=== PATIENT | female | born 1985 | race Caucasian/White ===

== ENCOUNTER 2020-01-15 16:45 | Inpatient (IN) | payer MEDICAID, OTHER ==
[~2020-01-15] VITALS: Ht 162.6 cm; Wt 75.5 kg
[2020-01-15 17:44] LABS: Urine Bacteria FEW /hpf (None Seen); Urine Blood 1+ /uL (Negative); Urine Mucus FEW (None Seen); Urine Specific Gravity 1.019 (1.001-1.035); Urine WBC 54 /hpf (0 - 5)
[2020-01-15 17:47] LABS: Basophils # (auto) 0 10 ^3/uL (0-0.2); Basophils % (auto) 0.1 % (0.0-2.0); Eosinophils # (auto) 0 10 ^3/uL (0-0.8); Eosinophils % (auto) 0.1 % (0.0-7.0); Hematocrit 37.7 % (36.0-46.0); Hemoglobin 12.6 g/dL (12.2-16.2); Lymphocytes # (auto) 0.8 10 ^3/uL (0.4-5.4); Lymphocytes % (auto) 7.7 % (10.0-50.0); Mean Corpuscular Hgb Conc. 33.4 g/dL (32.0-36.0); Mean Corpuscular Volume 92.6 fL (80.0-100.0); Monocytes # (auto) 1.2 10 ^3/uL (0-1.3); Monocytes % (auto) 11.5 % (0.0-12.0); Neutrophils # (auto) 8.2 10 ^3/uL (1.6-8.6); Neutrophils % (auto) 80.6 % (37.0-80.0); Platelet Count (auto) 281 10^3/uL (140-450); Red Blood Cells 4.07 10^6/uL (4.0-5.20); Red Cell Distribution Width 13.8 % (11.8-14.3); White Blood Cell 10.2 10^3/uL (4.4-10.8)
[2020-01-15 18:04] LABS: Albumin 3.8 g/dL (3.4-5.0); Calcium 8.6 mg/dL (8.5-10.1); Potassium 3.7 mmol/L (3.5-5.1)
[2020-01-15 18:08] LABS: BUN/Creatinine Ratio 10.6; Bilirubin, Total 0.6 mg/dL (0.2-1.0); Total Protein 7.4 g/dL (6.4-8.2)
[2020-01-15] MEDS ORDERED: SODIUM CHLORIDE 0.9% 2,000 ML IV ONE (18:30)
[2020-01-15] MEDS ORDERED: ONDANSETRON HCL 4 MG/2 ML VIAL IV ONE (19:15)
[2020-01-15] MEDS ORDERED: MORPHINE SULFATE 4 MG/ML SYR/VIAL IV ONE (19:15)
[2020-01-15] MEDS ORDERED: SODIUM CHLORIDE 0.9% 1,000 ML IV ONE (19:15)
[2020-01-15] MEDS ORDERED: cefTRIAXone 1GM/50ML D5W 50 ML IV ONE (19:15)
[2020-01-15 20:58] LABS: Alcohol, Urine < 3.0 mg/dL (0-10); Amphetamine Screen, Urine NEGATIVE (NEGATIVE); Barbiturate Scree,Urine NEGATIVE (NEGATIVE); Benzodiazephine Screen, Urine NEGATIVE (NEGATIVE); Cannabinoid Screen, Urine NEGATIVE (NEGATIVE); Cocaine Screen, Urine NEGATIVE (NEGATIVE); Opiate Scree,Urine POSITIVE (NEGATIVE); Phencyclidine Screen, Urine NEGATIVE (NEGATIVE)
[2020-01-15] MEDS ORDERED: D5W/SOD CHL 0.45% 1,000 ML IV ONE (21:15)
[2020-01-15] MEDS ORDERED: VANCOMYCIN 1GM/250ML 250 ML IV ONE (21:15)
[2020-01-15] MEDS: SODIUM CHLORIDE 0.9% 1,000 ML IV SCH (21:24)
[2020-01-15] MEDS ORDERED: ACETAMINOPHEN 325 MG TAB PO PRN (21:30)
[2020-01-15] MEDS ORDERED: LORazepam 0.5 MG TAB PO PRN (21:30)
[2020-01-15] MEDS ORDERED: metroNIDAZOLE 500MG/100ML 100 ML IV SCH (22:00)
[2020-01-15 22:55] VITALS: BP 106/59
--- NOTE | 2020-01-15 22:55 | NUR ---
Telemetry admit from [facility] admitted to Telemetry unit after SBAR received. Patient oriented to COCO GARG RN primary RN, unit, room, bed, and unit policies regarding patient care and visiting hours. Patient now on continuous telemetry monitoring, tele box # 61 and telemetry reading on arrival to unit is SR. Patient weighed by bedscale and encouraged to call if they need something. All questions and concerns addressed, patient verbalized understanding and in agreement. Fall and safety precautions in place. Call light within reach. Will continue to monitor q1h and prn. Addendum: 01/16/20 at 0408 by COCO GARG RN RN OMIT: "AFTER SBAR RECEIVED"
--- NOTE | 2020-01-15 22:56 | NUR ---
er called communications equipment installer called to inquire on status of media senior recruiter (see emar). RN not available. Awaiting call back. Will continue to monitor.
--- NOTE | 2020-01-15 23:00 | NUR ---
med not given - interface developer called received call back from rn at this time. asked interface developer if medications were given, she stated she did not see them and therefore did not administer. will call after-hours pharm to request time changed since medications given at this time would be late. will continue to monitor.
--- NOTE | 2020-01-15 23:15 | NUR ---
meds rescheduled spoke to after-hours pharmacy [facility]. reported that patient did not receive meds that are past due in er. pharmacist verbalized understanding and will reschedule medications (see emar). will carry out. will continue to monitor.
[2020-01-15] MEDS: metroNIDAZOLE 500MG/100ML 100 ML IV SCH (23:42)
[2020-01-15] MEDS: ONDANSETRON HCL 4 MG/2 ML VIAL IV PRN (23:42)
[2020-01-15] MEDS: MORPHINE SULF INJ 2 MG/ML SYRINGE 1ML IV PRN (23:43)
[2020-01-16] MEDS ORDERED: LEVO150T10 PO (00:47)
[2020-01-16] MEDS ORDERED: VANCOMYCIN 1GM/250ML 250 ML IV ONE (01:00)
[2020-01-16] MEDS: ONDANSETRON HCL 4 MG/2 ML VIAL IV PRN ×4 (05:22→20:28)
[2020-01-16] MEDS: metroNIDAZOLE 500MG/100ML 100 ML IV SCH ×3 (05:22→21:31)
[2020-01-16] MEDS: SODIUM CHLORIDE 0.9% 1,000 ML IV SCH (05:22)
[2020-01-16] MEDS: MORPHINE SULF INJ 2 MG/ML SYRINGE 1ML IV PRN ×4 (05:23→20:29)
[2020-01-16 05:45] VITALS: BP 106/58
[2020-01-16 06:14] LABS: Basophils # (auto) 0 10 ^3/uL (0-0.2); Basophils % (auto) 0.2 % (0.0-2.0); Eosinophils # (auto) 0 10 ^3/uL (0-0.8); Eosinophils % (auto) 0.4 % (0.0-7.0); Hematocrit 33.2 % (36.0-46.0); Hemoglobin 11.1 g/dL (12.2-16.2); Lymphocytes # (auto) 1.3 10 ^3/uL (0.4-5.4); Lymphocytes % (auto) 16.7 % (10.0-50.0); Mean Corpuscular Hemoglobin 31.2 pg (28.0-32.0); Mean Corpuscular Hgb Conc. 33.3 g/dL (32.0-36.0); Mean Corpuscular Volume 93.5 fL (80.0-100.0); Monocytes % (auto) 12.6 % (0.0-12.0); Neutrophils # (auto) 5.6 10 ^3/uL (1.6-8.6); Neutrophils % (auto) 70.1 % (37.0-80.0); Platelet Count (auto) 248 10^3/uL (140-450); Red Blood Cells 3.55 10^6/uL (4.0-5.20); Red Cell Distribution Width 13.8 % (11.8-14.3); White Blood Cell 7.9 10^3/uL (4.4-10.8)
[2020-01-16] MEDS: DOCUSATE SOD 100 MG CAP PO PRN (06:16)
[2020-01-16] MEDS: LEVOTHYROXINE SODIUM 25 MCG TAB PO SCH (06:16)
[2020-01-16 06:32] LABS: Calcium 7.5 mg/dL (8.5-10.1); Potassium 3.6 mmol/L (3.5-5.1)
[2020-01-16 09:00] VITALS: BP 99/57
[2020-01-16] MEDS: cefTRIAXone 1GM/50ML D5W 50 ML IV SCH (09:54)
[2020-01-16 12:13] LABS: INR 1.06 (0.9-1.15); Partial Thromboplastin Time 28.7 sec (23.0-31.2)
[2020-01-16 13:00] VITALS: BP 98/61
[2020-01-16 17:00] VITALS: BP 105/59
--- NOTE | 2020-01-16 19:40 | NUR ---
Opening Shift Note Assumed care of patient, awake and alert. No S/S of distress/SOB or pain. Fall and safety precautions in place. Call light within reach and able to use. Instructed on POC and to call for assist PRN, patient verbalized understanding and in agreement. Will continue to monitor for changes Q1hr and PRN.
[2020-01-16 22:00] VITALS: BP 106/61
[2020-01-17] MEDS: ONDANSETRON HCL 4 MG/2 ML VIAL IV PRN ×4 (01:48→21:03)
[2020-01-17] MEDS: MORPHINE SULF INJ 2 MG/ML SYRINGE 1ML IV PRN ×4 (01:49→21:03)
[2020-01-17 05:00] VITALS: BP 99/53
[2020-01-17] MEDS: LEVOTHYROXINE SODIUM 25 MCG TAB PO SCH (06:00)
[2020-01-17] MEDS: metroNIDAZOLE 500MG/100ML 100 ML IV SCH ×3 (06:00→22:29)
[2020-01-17] MEDS: SODIUM CHLORIDE 0.9% 1,000 ML IV SCH ×2 (06:00→23:24)
[2020-01-17] MEDS: DOCUSATE SOD 100 MG CAP PO PRN (06:18)
[2020-01-17 06:41] LABS: Basophils # (auto) 0 10 ^3/uL (0-0.2); Basophils % (auto) 0.4 % (0.0-2.0); Eosinophils # (auto) 0.1 10 ^3/uL (0-0.8); Eosinophils % (auto) 1.5 % (0.0-7.0); Hematocrit 30.9 % (36.0-46.0); Hemoglobin 10.2 g/dL (12.2-16.2); Lymphocytes # (auto) 1.3 10 ^3/uL (0.4-5.4); Mean Corpuscular Hemoglobin 30.7 pg (28.0-32.0); Mean Corpuscular Hgb Conc. 32.9 g/dL (32.0-36.0); Mean Corpuscular Volume 93.2 fL (80.0-100.0); Monocytes # (auto) 0.8 10 ^3/uL (0-1.3); Monocytes % (auto) 11.8 % (0.0-12.0); Neutrophils # (auto) 4.2 10 ^3/uL (1.6-8.6); Neutrophils % (auto) 65.3 % (37.0-80.0); Platelet Count (auto) 238 10^3/uL (140-450); Red Blood Cells 3.32 10^6/uL (4.0-5.20); Red Cell Distribution Width 13.6 % (11.8-14.3); White Blood Cell 6.4 10^3/uL (4.4-10.8)
[2020-01-17 07:23] LABS: Potassium 3.7 mmol/L (3.5-5.1)
[2020-01-17 07:32] LABS: Albumin 2.9 g/dL (3.4-5.0); BUN/Creatinine Ratio 14.5; Bilirubin, Total 0.4 mg/dL (0.2-1.0); Calcium 7.8 mg/dL (8.5-10.1); Total Protein 5.9 g/dL (6.4-8.2)
[2020-01-17 09:43] VITALS: BP 106/59
[2020-01-17] MEDS: cefTRIAXone 1GM/50ML D5W 50 ML IV SCH (10:50)
[2020-01-17] MEDS: HYDROcodone-ACET 5/325MG TAB PO PRN ×2 (11:01→18:16)
[2020-01-17 13:00] VITALS: BP 105/80
[2020-01-17 22:19] VITALS: BP 105/69
[2020-01-18] MEDS: MORPHINE SULF INJ 2 MG/ML SYRINGE 1ML IV PRN ×4 (02:54→21:22)
[2020-01-18] MEDS: ONDANSETRON HCL 4 MG/2 ML VIAL IV PRN ×4 (02:54→21:22)
[2020-01-18 05:00] VITALS: BP 99/61
[2020-01-18 05:50] LABS: Albumin 2.8 g/dL (3.4-5.0); Bilirubin, Direct 0.1 mg/dL (0-0.2); Bilirubin, Total 0.3 mg/dL (0.2-1.0); Total Protein 5.6 g/dL (6.4-8.2)
[2020-01-18] MEDS: metroNIDAZOLE 500MG/100ML 100 ML IV SCH ×3 (06:23→22:36)
[2020-01-18] MEDS: LEVOTHYROXINE SODIUM 25 MCG TAB PO SCH (06:24)
--- NOTE | 2020-01-18 08:00 | NUR ---
Received pt resting in bed, call light with in reach, pt reports abdominal pain 12/17, pt requested pain medication, will medicate pt as order, will continue to monitor pt.
[2020-01-18] MEDS: cefTRIAXone 1GM/50ML D5W 50 ML IV SCH (08:14)
[2020-01-18 09:00] VITALS: BP 113/65
--- NOTE | 2020-01-18 09:15 | NUR ---
Pt taken to pre op.
[2020-01-18] MEDS ORDERED: ceFAZolin 1GM/50ML 50 ML IV ONE (10:25)
[2020-01-18] MEDS ORDERED: fentaNYL CITRATE 100 MCG/2 ML VL ONE (10:32)
[2020-01-18] MEDS ORDERED: DexAMETHasone SOD PHOS 10MG/1ML VIAL INJ IV ONE (10:32)
[2020-01-18] MEDS ORDERED: ROCURONIUM 10MG/ML 10ML VIAL IV ONE (10:32)
[2020-01-18] MEDS ORDERED: MIDAZOLAM HCL 1MG/1ML-2 ML VIAL ONE (10:33)
[2020-01-18] MEDS ORDERED: PROPOFOL 10 MG/ML 20 ML IV ONE (11:13)
[2020-01-18] MEDS ORDERED: hydrALAZINE HCL 20 MG/ML VL IV PRN (11:30)
[2020-01-18] MEDS ORDERED: ONDANSETRON HCL 4 MG/2 ML VIAL IV PRN (11:30)
[2020-01-18] MEDS ORDERED: ePHEDrine SULFATE 50 MG/ML AMP IV PRN (11:30)
[2020-01-18] MEDS: HYDROmorphone HCL 2 MG/ML VL IV PRN ×4 (11:45→12:25)
--- NOTE | 2020-01-18 12:17 | NUR ---
Nutrition Assessment Note please see attached link for complete assessment Est energy needs BW 70 [id number] kcal (23-25 kcal/kg BW) Est protein needs: 70-77g (1.0-1.1g/kg BW) will reassess prn Addendum: 01/18/20 at [address] Amended: Links added.
--- NOTE | 2020-01-18 12:50 | NUR ---
Received from recovery s/p lap val, abdominal binder on, kiran to rt abdomen, draining serosanguineous fluid, v/s BP 104/58, O2 98% at 2 lit n/c, HR 56, will continue to monitor pt.
[2020-01-18 13:00] VITALS: BP 101/57
[2020-01-18] MEDS: SODIUM CHLORIDE 0.9% 1,000 ML IV SCH (16:36)
[2020-01-18 17:00] VITALS: BP 97/65
--- NOTE | 2020-01-18 17:22 | NUR ---
ss consult Per consult advanced directive. Patient has been provided with advanced directive information. Addendum: 01/18/20 at 1723 by Padmini RUIZ Amended: Links added.
[2020-01-18] MEDS: HYDROcodone-ACET 5/325MG TAB PO PRN (17:46)
--- NOTE | 2020-01-18 19:50 | NUR ---
Opening Shift Note Assumed care of patient, awake and alert. No S/S of distress/SOB. Pt complaining of abdominal pain at this time, will be addressed with prescribed pain medication. Safety measures in place, bed in lowest position, bed rails raised x2, call light within reach. RAYRAY drain noted to be draining well, serosanguineous fluid noted in drain. Abdominal binder in place over incisional areas. Instructed on POC and to call for assist PRN, will continue to monitor for changes Q1hr and PRN.
--- NOTE | 2020-01-18 20:00 | NUR ---
Incentive Spirometer IS measuring at 1000 at this time. Pt educated on the importance of use. Pt verbalized understanding and will continue to use.
[2020-01-18 22:00] VITALS: BP 97/56
[2020-01-19] MEDS: HYDROcodone-ACET 5/325MG TAB PO PRN ×3 (00:16→10:33)
[2020-01-19] MEDS: MORPHINE SULF INJ 2 MG/ML SYRINGE 1ML IV PRN ×2 (04:32→14:09)
[2020-01-19] MEDS: ONDANSETRON HCL 4 MG/2 ML VIAL IV PRN ×2 (04:33→14:09)
[2020-01-19 05:40] LABS: Basophils # (auto) 0 10 ^3/uL (0-0.2); Basophils % (auto) 0.3 % (0.0-2.0); Eosinophils # (auto) 0 10 ^3/uL (0-0.8); Eosinophils % (auto) 0.4 % (0.0-7.0); Hematocrit 29.8 % (36.0-46.0); Lymphocytes % (auto) 17.9 % (10.0-50.0); Mean Corpuscular Hemoglobin 31.1 pg (28.0-32.0); Mean Corpuscular Hgb Conc. 33.6 g/dL (32.0-36.0); Mean Corpuscular Volume 92.5 fL (80.0-100.0); Monocytes # (auto) 0.5 10 ^3/uL (0-1.3); Monocytes % (auto) 9.4 % (0.0-12.0); Neutrophils # (auto) 4.1 10 ^3/uL (1.6-8.6); Nucleated Red Blood Cells % 0.1 %; Platelet Count (auto) 311 10^3/uL (140-450); Red Blood Cells 3.22 10^6/uL (4.0-5.20); Red Cell Distribution Width 13.7 % (11.8-14.3); White Blood Cell 5.7 10^3/uL (4.4-10.8)
[2020-01-19 06:04] VITALS: BP 103/61
[2020-01-19] MEDS: metroNIDAZOLE 500MG/100ML 100 ML IV SCH ×2 (06:15→13:08)
[2020-01-19] MEDS: LEVOTHYROXINE SODIUM 25 MCG TAB PO SCH (06:30)
--- NOTE | 2020-01-19 07:42 | NUR ---
Received pt resting in bed, call light within reach, pt reports tolerating her clear liquid diet, pt educated on the importance, frequency, and use of the incentive spirometer, pt able to reach 1000 ml, abdominal binder on, RAYRAY drain with serosanguineous fluid, pt reports passing gas, abdominal dressings with betadine stains, no blood noticed, pt reports to have pain 7/10 to incision site, pt was given pain medication by weight shifter nurse, pt also reports to feel very drowsy due to the pain medication, will continue to monitor pt.
[2020-01-19] MEDS: SODIUM CHLORIDE 0.9% 1,000 ML IV SCH (08:44)
--- NOTE | 2020-01-19 08:52 | NUR ---
Pt ambulated around the station, pt tolerated well, pt reports to have passed gas, will continue to monitor pt.
[2020-01-19] MEDS: cefTRIAXone 1GM/50ML D5W 50 ML IV SCH (08:56)
[2020-01-19 09:00] VITALS: BP 103/64
[2020-01-19 12:00] VITALS: BP 107/60
--- NOTE | 2020-01-19 12:55 | NUR ---
Received a call from Dr. Angel to inquire on pt's status, doctor informed that pt has ambulated around the station x2, pt is passing gas, pt is getting [place] for pain medication, and that pt's RAYRAY out put for last night was 55 ml of serosanguineous fluid. Orders received to call Dr. Whiting / surgeon for clearance for d/c today.
--- NOTE | 2020-01-19 12:57 | NUR ---
Paged Dr. Whiting / surgeon to inform that Dr. Angel wants to d/c pt and wants to know if it is ok to d/c pt.
--- NOTE | 2020-01-19 13:01 | NUR ---
Received call back from Dr. Whiting / surgeon, doctor informed regarding pt's current status, pt passing gas, pt's RAYRAY output 55 ml last night of serosanguineous fluid, pt tolerating clear liquid diet, as per doctor ok to d/c home today and f/u in 1 week.
[2020-01-19] MEDS ORDERED: HYDR-4833 PO (13:06)
[2020-01-19] MEDS ORDERED: CIPR-173 PO (13:06)
--- NOTE | 2020-01-19 14:09 | NUR ---
Pt reported abdominal pain 8/10 after eating soft diet, pt denied any nausea, pt requested pain medication, pt requested Morphine, pt medicated as order, will continue to monitor pt.
[2020-01-19 14:24] VITALS: BP 107/60
--- NOTE | 2020-01-19 14:29 | NUR ---
Assessment Patient is a 34-year-old female who is alert and oriented. Prior to admission patient lived home with family and functioned independently. Patient does not have any medical equipment now. Patient can care for her own ADLs. Per patient she will return home to her prior living arrangements post discharge and family will transport her home. Advised patient there is a Social service consult for home health RAYRAY drain care. Informed patient clinical information will be faxed to a contracted home health agency and [facility]. Informed patient she has a right to participate in all discharge planning. Patient verbalized understanding and agreed to discharge plan home. Faxed clinical information to [facility] and [facility]. Per Tawny with [facility] patient has been accepted and service to start within 24-48hrs upon d/c day. Informed SIDNEY Gustafson. Addendum: 01/19/20 at 1431 by SONALI RUIZ Amended: Links added.
--- NOTE | 2020-01-19 14:40 | NUR ---
Called and spoke to Jacinda / social media designer to inquire on the social services analyst consult for home health, as per social services analyst Jacinda, pt will have [facility] and pt can be discharge.
--- NOTE | 2020-01-19 16:00 | NUR ---
Discharge instructions given as ordered. Encourage to follow up with PMD as instructed. All questions and concerns addressed. Patient verbalized understanding. Medication reconciliation form completed and copy given to patient. No home medications held in Pharmacy, and no needed vaccines given. IV removed with catheter intact, pressure dressing applied. Telemetry unit returned to ICU.
--- NOTE | 2020-01-19 16:00 | NUR ---
obtain authorization from [facility] [id number] [facility]
--- NOTE | 2020-01-19 17:07 | NUR ---
Patient taken to vehicle via wheelchair with all personal belongings, accompanied by staff member. No distress noted at time of departure.
== END 2020-01-19 17:10 | disposition home health service (06) | DRG 263 ==
LOC: ER 16:45 → TELE 16:46 → TELE-WESTW 22:55
PROVIDERS: ADMIT Hospitalist; ATTEND Hospitalist
PROC: 3E013GC Introduction of Other Therapeutic Substance into Subcutaneous Tissue, Percutaneous Approach (ICD-10-PCS; 2020-01-18)
PROC: 0FT44ZZ Resection of Gallbladder, Percutaneous Endoscopic Approach (ICD-10-PCS; principal; 2020-01-18 10:25)
DX: K80.00 Calculus of gallbladder with acute cholecystitis without obstruction (principal); N39.0 Urinary tract infection, site not specified; Z88.2 Allergy status to sulfonamides
CPT/HCPCS: 36415; 74176; 76705; 80048; 80053; 80061; 80076; 80307; 81001; 81025; 82247; 83605; 84702; 85025; 85610; 85730; 86850; 86900; 86901; 87040; 87070; 87075; 87086; 87205; G0378; J0690; J0696; J1100; J2250; J2405; J2704; J3490